=== PATIENT | male | born 1980 | race African-American/Black ===

== ENCOUNTER 2017-06-10 09:35 | Emergency (ER) | payer SELFPAY ==
[~2017-06-10] VITALS: Ht 177.8 cm; Wt 68.0 kg
[~2017-06-10 09:35] MED LIST: IBUP400T20 PO; PROM25SU8 PO; VICO7.5T PO; Z.0.NO CURRENT MEDS
[2017-06-10 09:44] VITALS: BP 141/67; PULSE 97; RESP 17; TEMP 98.7; O2SAT 98
[2017-06-10 10:08] VITALS: O2SAT 99
[2017-06-10] MEDS ORDERED: SODIUM CHLORIDE 0.9% FLUSH 10 ML FLUSH IVF PRN (10:15)
[2017-06-10] MEDS ORDERED: ASPIRIN 81 MG CHEW TAB PO ONE (10:15)
--- NOTE | 2017-06-10 10:16 | PD ---
HPI Chief Complaint: Chest Pain Time Seen by Provider: 10:01 Travel History International Travel<30 days: No Contact w/Intl Traveler<30days: No Traveled to known affect area: No History of Present Illness HPI 36-year-old -[place] male presents emergency department with 10 minute episode of sharp left-sided chest pain this morning. Patient states he received news of not getting a job he was going on just prior to this episode. Patient was somewhat overwhelmed at that time. He states no history of chest pain prior to this. He states the pain is now resolved. Patient has no cardiac history previously. He denies nausea, vomiting, or other symptoms. No shortness of breath. Patient states his pain is now 0. He has no known drug allergies. [facility] Social History Alcohol Use: Yes (MONTHS AGO) Tobacco Use: Yes (1 CIGAR / DAY) Substance Use: No Allergies-Medications (Allergen,Severity, Reaction): Coded Allergies: No Known Allergies (Verified Allergy, Severe, 06/10/17) Reported Meds & Prescriptions Reported Meds & Active Scripts Active Vicodin Es 7.5/750 (Acetaminophen/Hydrocodone Bitart) 750 Mg/7.5 Mg Tab 1 Tab PO Q4-6HPRN Phenergan (Promethazine HCl) 25 Mg Tab 25 Mg PO QIDPRN NAUSEA Motrin (Ibuprofen) 400 Mg Tab 400 Mg PO Q8HPRN FOR PAIN Reported No Current Meds (Miscellaneous Medication) Misc No Current Meds (Miscellaneous Medication) Misc Review of Systems Except as stated in HPI: all other systems reviewed are Neg General / Constitutional: No: Fever Eyes: No: Visual changes HENT: No: Headaches Cardiovascular: Positive: Chest Pain or Discomfort (See history of present illness per), No: Palpitations, Irregular Rhythm, Tachycardia, Diaphoresis, Syncope, Dyspnea on exertion, Varicosities, Edema Respiratory: No: Shortness of Breath Gastrointestinal: No: Abdominal Pain Genitourinary: No: Dysuria Musculoskeletal: No: Pain Skin: No Rash Neurologic: No: Weakness Psychiatric: Positive: Anxiety, No: Depression, Suicidal Ideations, Substance Abuse, Homicidal Ideation Endocrine: No: Polydipsia Hematologic/Lymphatic: No: Easy Bruising Physical Exam Narrative GENERAL: Patient appears in no acute distress. SKIN: Warm and dry. Normal color. Normal turgor. No diaphoresis. HEAD: Atraumatic. Normocephalic. EYES: Pupils equal and round. No scleral icterus. No injection or drainage. ENT: No nasal bleeding or discharge. Mucous membranes pink and moist. Pharynx is clear. Airways patent NECK: Trachea midline. No JVD. Supple nontender CARDIOVASCULAR: Regular rate and rhythm. No murmurs gallops or rubs RESPIRATORY: No accessory muscle use. Clear to auscultation. Breath sounds equal bilaterally. GASTROINTESTINAL: Abdomen soft, non-tender, nondistended. Hepatic and splenic margins not palpable. MUSCULOSKELETAL: Extremities without clubbing, cyanosis, or edema. No obvious deformities. NEUROLOGICAL: Awake and alert. No obvious cranial nerve deficits. Motor grossly within normal limits. Five out of 5 muscle strength in the arms and legs. Normal speech. PSYCHIATRIC: Appropriate mood and affect; insight and judgment normal. Data Data Last Documented VS Vital Signs Date Time Temp Pulse Resp B/P (MAP) Pulse Ox O2 Delivery O2 Flow Rate FiO2 06/10/17 10:08 99 Room Air 06/10/17 09:55 88 16 06/10/17 09:44 98.7 141/67 (91) Orders Orders Electrocardiogram (06/10/17 10:06) Ckmb (Isoenzyme) Profile (06/10/17 10:06) Complete Blood Count With Diff (06/10/17 10:06) Comprehensive Metabolic Panel (06/10/17 10:06) Magnesium (Mg) (06/10/17 10:06) Prothrombin Time / Inr (Pt) (06/10/17 10:06) Act Partial Throm Time (Ptt) (06/10/17 10:06) Troponin I (06/10/17 10:06) Ecg Monitoring (06/10/17 10:06) Bilateral Bp Monitoring (06/10/17 10:06) Iv Access Insert/Monitor (06/10/17 10:06) Oximetry (06/10/17 10:06) Oxygen Administration (06/10/17 10:06) Aspirin Chew (Aspirin Chew) (06/10/17 10:15) Sodium Chloride 0.9% Flush (Ns Flush) (06/10/17 10:15) Chest, Pa & Lat (06/10/17 10:06) CKMB (06/10/17 10:05) CKMB% (06/10/17 10:05) Labs Laboratory Tests Test 06/10/17 10:05 White Blood Count 9.1 TH/MM3 Red Blood Count 4.69 MIL/MM3 Hemoglobin 12.8 GM/DL Hematocrit 39.1 % Mean Corpuscular Volume 83.4 FL Mean Corpuscular Hemoglobin 27.4 PG Mean Corpuscular Hemoglobin Concent 32.8 % Red Cell Distribution Width 12.4 % Platelet Count 251 TH/MM3 Mean Platelet Volume 8.9 FL Neutrophils (%) (Auto) 61.0 % Lymphocytes (%) (Auto) 26.9 % Monocytes (%) (Auto) 7.2 % Eosinophils (%) (Auto) 4.4 % Basophils (%) (Auto) 0.5 % Neutrophils # (Auto) 5.6 TH/MM3 Lymphocytes # (Auto) 2.5 TH/MM3 Monocytes # (Auto) 0.7 TH/MM3 Eosinophils # (Auto) 0.4 TH/MM3 Basophils # (Auto) 0.0 TH/MM3 CBC Comment DIFF FINAL Differential Comment Prothrombin Time 11.2 SEC Prothromb Time International Ratio 1.1 RATIO Activated Partial Thromboplast Time 29.0 SEC Blood Urea Nitrogen 11 MG/DL Creatinine 1.04 MG/DL Random Glucose 87 MG/DL Total Protein 7.4 GM/DL Albumin 3.8 GM/DL Calcium Level 8.7 MG/DL Magnesium Level 2.0 MG/DL Alkaline Phosphatase 70 U/L Aspartate Amino Transf (AST/SGOT) 29 U/L Alanine Aminotransferase (ALT/SGPT) 39 U/L Total Bilirubin 0.7 MG/DL Sodium Level 138 MEQ/L Potassium Level 3.5 MEQ/L Chloride Level 103 MEQ/L Carbon Dioxide Level 28.5 MEQ/L Anion Gap 7 MEQ/L Estimat Glomerular Filtration Rate 99 ML/MIN Total Creatine Kinase 681 U/L Troponin I LESS THAN 0.02 NG/ML [facility] Medical Decision Making Medical Screen Exam Complete: Yes Emergency Medical Condition: Yes Differential Diagnosis Atypical chest pain. Cardiac syndrome. Palpitations. Anxiety. Narrative Course Patient is medically stable at time of exam. EKG shows normal sinus rhythm without ST changes. Rate is 90 bpm. Chest pain protocol labs are ordered as well as chest x-ray. Patient is given 324 mg aspirin p.o. Chest x-ray is unremarkable. CBC is unremarkable. Coagulation studies are unremarkable. Chemistries are normal. Creatinine kinase is elevated at 681, and first troponin is less than 0.02 Patient has remained pain-free throughout his time in the emergency department. Patient is discussed with Dr. Jeong. Patient is seen with Dr. Jeong, and we both feel that he is not having a cardiac issue at this time, and feels that he is stable for discharge. It is felt the patient most likely had an anxiety issue causing his symptoms. Patient is recommended to follow-up with [facility] for regular primary care. Patient is welcome to return at any time for worsening or recurring chest pain. Diagnosis Primary Impression: Atypical chest pain Patient Instructions: Anxiety (ED), Chest Pain (ED), General Instructions Additional Instructions: Chest x-ray is unremarkable. CBC is unremarkable. Coagulation studies are unremarkable. Chemistries are normal. Creatinine kinase is elevated at 681, and first troponin is less than 0.02 Patient has remained pain-free throughout his time in the emergency department. Patient is discussed with Dr. Jeong. Patient is seen with Dr. Jeong, and we both feel that he is not having a cardiac issue at this time, and feels that he is stable for discharge. It is felt the patient most likely had an anxiety issue causing his symptoms. Patient is recommended to follow-up with [facility] for regular primary care. Patient is welcome to return at any time for worsening or recurring chest pain. Med/Other Pt SpecificInfo: No Meds Exist/No RX given Condition: Stable David Mendez Jun 10, 2017 10:16
[2017-06-10 10:42] LABS: AUTOMATED NEUTROPHIL # 5.6 TH/MM3 (1.8-7.7); BASOPHIL % 0.5 % (0.0-2.0); EOSINOPHIL # 0.4 TH/MM3 (0-0.4); EOSINOPHIL % 4.4 % (0.0-4.0); HEMATOCRIT 39.1 % (39.0-51.0); HEMOGLOBIN 12.8 GM/DL (13.0-17.0); LYMPH % 26.9 % (9.0-44.0); LYMPHOCYTE # 2.5 TH/MM3 (1.0-4.8); MEAN CELL VOLUME 83.4 FL (80.0-100.0); MEAN CORPUSCULAR HEMOGLOBIN 27.4 PG (27.0-34.0); MEAN CORPUSCULAR HGB CONC 32.8 % (32.0-36.0); MEAN PLATELET VOLUME 8.9 FL (7.0-11.0); MONO % 7.2 % (0.0-8.0); MONOCYTE # 0.7 TH/MM3 (0-0.9); PLATELET COUNT 251 TH/MM3 (150-450); RED BLOOD COUNT 4.69 MIL/MM3 (4.50-5.90); RED CELL DISTRIBUTION WIDTH 12.4 % (11.6-17.2); WHITE BLOOD COUNT 9.1 TH/MM3 (4.0-11.0)
[2017-06-10 10:48] LABS: INTERNATIONAL NORMALIZED RATIO 1.1 RATIO; PROTHROMBIN TIME - PATIENT 11.2 SEC (9.8-11.6)
[2017-06-10 11:08] LABS: ALT (GPT) 39 U/L (12-78)
[2017-06-10 11:09] LABS: ALBUMIN 3.8 GM/DL (3.4-5.0); AST (GOT) 29 U/L (15-37); BICARBONATE 28.5 MEQ/L (21.0-32.0); BLOOD UREA NITROGEN 11 MG/DL (7-18); CALCIUM 8.7 MG/DL (8.5-10.1); CHLORIDE 103 MEQ/L (98-107); CREATININE 1.04 MG/DL (0.60-1.30); GLOMERULAR FILTRATION RATE 99 ML/MIN (>89); GLUCOSE,RANDOM 87 MG/DL (74-106); SODIUM (NA) 138 MEQ/L (136-145)
--- NOTE | 2017-06-10 11:09 | RADRPT ---
EXAM DATE/TIME: 06/10/2017 10:25 [facility] COMPARISON: No previous studies available for comparison. INDICATIONS : Chest pain. MEDICAL HISTORY : Hypertension. SURGICAL HISTORY : None. ENCOUNTER: Initial ACUITY: 1 day PAIN SCORE: 4/10 LOCATION: Bilateral chest chest FINDINGS: PA and lateral views of the chest demonstrate the lungs to be symmetrically aerated without evidence of mass, infiltrate or effusion. The cardiomediastinal contours are unremarkable. Osseous structure s are intact. CONCLUSION: No evidence of acute cardiopulmonary disease. Jorge Ellison MD on June 10, 2017 at 11:07 Board Certified Radiologist. This report was verified electronically.
[2017-06-10 11:12] LABS: ALKALINE PHOSPHATASE 70 U/L (45-117); TOTAL BILIRUBIN ADULT 0.7 MG/DL (0.2-1.0); TOTAL PROTEIN 7.4 GM/DL (6.4-8.2); TROPONIN I LESS THAN 0.02 NG/ML (0.02-0.05)
[2017-06-10 11:34] VITALS: BP 131/82
--- NOTE | 2017-06-11 13:29 | EKG ---
Date Performed: 06/10/2017 Time Performed: 09:57:34 PTAGE: 36 years EKG: Sinus rhythm NORMAL ECG INTERPRETATION BASED ON A DEFAULT AGE OF 42 YEARS NO PREVIOUS TRACING DOCTOR: John Hardy Interpretating Date/Time 06/11/2017 13:26:39
== END 2017-06-10 11:41 | disposition home or self-care (01) ==
LOC: NEPD 09:35
DX: R07.89 Other chest pain (principal); F41.9 Anxiety disorder, unspecified; I10 Essential (primary) hypertension; Z72.0 Tobacco use; Z79.899 Other long term (current) drug therapy
CPT/HCPCS: 71046; 80053; 82550; 82552; 83735; 84484; 85025; 85610; 85730; 93005